=== PATIENT | female | born 1950 | race Two or more races ===

== ENCOUNTER 2021-11-22 08:28 | Emergency (ER) | payer OTHER ==
[~2021-11-22] VITALS: Ht 157.5 cm; Wt 50.8 kg
== END 2021-11-22 10:10 | disposition home or self-care (01) ==
LOC: ER 08:28
DX: S39.93XA Unspecified injury of pelvis, initial encounter (principal); X58.XXXA Exposure to other specified factors, initial encounter; Y93.9 Activity, unspecified; Y92.9 Unspecified place or not applicable; Y99.9 Unspecified external cause status; Z88.8 Allergy status to other drugs, medicaments and biological substances

== ENCOUNTER 2024-12-30 07:44 | Emergency (ER) | payer OTHER ==
[~2024-12-30] VITALS: Ht 157.5 cm; Wt 46.3 kg
[2024-12-30] MEDS ORDERED: COZAAR25 MG (07:49)
[2024-12-30] MEDS ORDERED: SYNTHROID50 MCG PO (07:51)
[2024-12-30] MEDS ORDERED: ORPHENADRINE CITRATE 30 MG/ML AMPUL IM ONE (09:00)
[2024-12-30] MEDS ORDERED: KETOROLAC TROMETHAMINE 30 MG VIAL IM ONE (09:00)
== END 2024-12-30 11:47 ==
LOC: ER 07:44
DX: M62.838 Other muscle spasm (principal); M51.369 Other intervertebral disc degeneration, lumbar region without mention of lumbar back pain or lower extremity pain; I10 Essential (primary) hypertension; E03.9 Hypothyroidism, unspecified; Z88.8 Allergy status to other drugs, medicaments and biological substances
CPT/HCPCS: 72040; 96372; 99283; J1885; J2360